=== PATIENT | female | born 1980 | race American Indian/Alaskan Native ===

== ENCOUNTER 2018-04-13 11:39 | Emergency (ER) | payer OTHER ==
[2018-04-13] MEDS ORDERED: ZOFRAN ODT ONE (12:41)
[2018-04-13] MEDS ORDERED: BENADRYL PO ONE (12:45)
[2018-04-13] MEDS ORDERED: ZOFRAN ODT PO ONE (12:45)
[2018-04-13 13:16] LABS: Basophils % (Auto) 0.8 % (0.0-1.8); Eosinophils % (Auto) 0.8 % (0.0-4.3); Hematocrit 37.6 % (30.3-42.9); Hemoglobin 12.4 gm/dl (10.1-14.3); Lymphocytes # (Auto) 1.2 K/mm3 (1.2-5.4); Lymphocytes % (Auto) 20.9 % (13.4-35.0); Mean Corpuscular HGB Conc 33 % (30-34); Mean Corpuscular Hemoglobin 28 pg (28-32); Mean Corpuscular Volume 85 fl (79-97); Monocytes # (Auto) 0.3 K/mm3 (0.0-0.8); Monocytes % (Auto) 5.2 % (0.0-7.3); Platelet Count 179 K/mm3 (140-440); Red Blood Count 4.45 M/mm3 (3.65-5.03); Red Cell Distribution Width 13.8 % (13.2-15.2)
[2018-04-13 13:18] LABS: Bacteria,Urine 1+ /HPF (Negative); Bilirubin,Urine NEG (Negative); Blood,Urine NEG (Negative); Color,Urine Yellow (Yellow); Mucus,Urine FEW /HPF; Protein,Urine <15 mg/dL mg/dL (Negative); Urobilinogen,Urine < 2.0 mg/dL (<2.0)
[2018-04-13 13:22] LABS: HCG Qualitative,Urine Negative (Negative)
[2018-04-13 13:48] LABS: Alanine Aminotransferase 9 units/L (7-56); Albumin 4.2 g/dL (3.9-5); BUN/Creatinine Ratio 12; Blood Urea Nitrogen 7 mg/dL (7-17); Calcium 9.1 mg/dL (8.4-10.2); Hemolysis Index 32; Lipase 28 units/L (13-60)
--- NOTE | 2018-04-13 14:34 | Emergency Department Report ---
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 Reports this morning at approximately 0945 she smelled a noxious smell in the office. Reports that customers in the bank around the same time began to complain of abdominal pain. Reports that she felt drowsy and that her face began to smell. Reports that the facial swelling improved upon arrival to the ER. Reports that she felt some burning in her abdomen and chest at the time of the smell. Denies symptoms prior to the smell. No fire witnessed or smoke inhaled. NKDA. [place] Complaint: allergic reaction, facial swelling -: Gradual, hour(s) Exposure: unknown Symptoms: facial swelling, lip swelling, abdominal pain Severity: mild Treatment Prior to Arrival: none Previous Allergy History: none - Related Data Home Medications Medication Instructions Recorded Confirmed Last Taken Vit 49/Iron Fum/Folic 1 each PO QDAY 06/30/14 08/10/14 08/09/14 08:30 [Mini Tablet] Acetaminophen [Acetaminophen TAB] 500 mg PO Q6HR 07/07/14 08/12/14 08/09/14 08: 30 1 tab Allergies Allergy/AdvReac Type Severity Reaction Status Date / Time No Known Allergies Allergy Verified 06/30/14 14:56 ED Review of Systems ROS: Stated complaint: INHALED GAS Other details as noted in HPI Other: GENERAL: No weight change, fatigue, weakness, fever, chills, or night sweats SKIN: No changes in skin or hair, no itching, no rashes, no jaundice HEAD: No trauma, headache, or visual changes EYES: No blurriness, tearing, itching, acute visual loss, conjunctival discoloration, or scleral icterus EARS: No hearing loss, tinnitus, vertigo, or earache NOSE: No rhinorrhea, stuffiness, sneezing, itching, or epistaxis MOUTH: No bleeding gums, hoarseness, sore throat, or swelling CARDIAC: chest burning RESPIRATORY: No shortness of breath, wheeze, cough, sputum production, hemoptysis, pneumonia, asthma, bronchitis, or emphysema GI: abdominal burning, nausea URINARY: No frequency, urgency, polyuria, dysuria, hematuria, or incontinence MUSCULOSKELETAL: No muscle weakness, joint stiffness, decrease in range of motion, redness, swelling NEUROLOGIC: No loss of sensation, numbness, tingling, tremors, weakness, paralysis, seizures HEMATOLOGIC: No anemia, easy bruising, bleeding, petechiae, or purpura ENDOCRINE: No hot or cold intolerance, sweating, polyuria, polydipsia or, polyphagia no thyroid problems PSYCHIATRIC: No change in mood, no anxiety, no depression ED Past Medical Hx - Past Medical History Previous Medical History?: Yes Hx Hypertension: No Hx Heart Attack/AMI: No Hx Congestive Heart Failure: No Hx Diabetes: No Hx Deep Vein Thrombosis: No Hx Liver Disease: No Hx Renal Disease: No Hx Sickle Cell Disease: No Hx Seizures: No Hx Asthma: No Hx COPD: No Hx HIV: No - Surgical History Past Surgical History?: No - Social History Smoking Status: Never Smoker Substance Use Type: Alcohol - Medications Home Medications: Home Medications Medication Instructions Recorded Confirmed Last Taken Type Vit 49/Iron Fum/Folic 1 each PO QDAY 06/30/14 08/10/14 08/09/14 08:30 History [Mini Tablet] Acetaminophen [Acetaminophen TAB] 500 mg PO Q6HR 07/07/14 08/12/14 08/09/14 08: 30 History 1 tab ED Physical Exam - General Limitations: No Limitations - Other Other exam information: GENERAL: Patient in no acute distress. Patient reports symptom improvement since arriving to the ER from when symptoms began. HEAD: Normocephalic, atraumatic EYES: PERRLA, EOM intact, no scleral icterus, visual de paz and acuity wnl NOSE: No tenderness, discharge, sinus tenderness MOUTH: No erythema, bleeding, exudate HEART: Regular rate and rhythm, no murmur, S1-S2 are auscultated, pulses are symmetric LUNGS: bilateral breath sounds. No wheezing, rales, rhonchi ABDOMEN: Normal bowel sounds, no tenderness, no rebound, no guarding, no masses , no CVA tenderness MUSCULOSKELETAL: Normal joint range of motion, no redness, no swelling, no tenderness NEUROLOGIC: GCS 15, Alert and Oriented x3, Cranial nerves intact, normal sensation, normal strength, normal gait, no cerebellar deficit PSYCHIATRIC: No homicidal or suicidal ideation, no anxiety, no depression, no hallucinations SKIN: Skin is warm and dry, no wounds, no rashes ED Course Vital Signs 04/13/18 04/13/18 11:46 12:39 Temperature 99.8 F H Pulse Rate 90 Respiratory 18 18 Rate Blood Pressure 169/99 O2 Sat by Pulse 100 100 Oximetry ED Medical Decision Making - Lab Data Result diagrams: 04/13/18 12:59 04/13/18 12:59 Laboratory Results - last 24 hr 04/13/18 04/13/18 04/13/18 12:45 12:59 12:59 WBC 5.5 RBC 4.45 Hgb 12.4 Hct 37.6 MCV 85 MCH 28 MCHC 33 RDW 13.8 Plt Count 179 Lymph % (Auto) 20.9 [place] % (Auto) 5.2 Eos % (Auto) 0.8 Baso % (Auto) 0.8 Lymph # 1.2 [place] # 0.3 Eos # 0.0 Baso # 0.0 Seg Neutrophils % 72.3 H Seg Neutrophils # 4.0 Sodium 135 L Potassium 4.0 Chloride 100.1 Carbon Dioxide 21 L Anion Gap 18 BUN 7 Creatinine 0.6 L Estimated GFR > 60 BUN/Creatinine Ratio 12 Glucose 80 Calcium 9.1 Total Bilirubin 0.30 AST 18 ALT 9 Alkaline Phosphatase 52 Total Protein 7.6 Albumin 4.2 Albumin/Globulin Ratio 1.2 Lipase 28 Urine Color Yellow Urine Turbidity Clear Urine pH 6.0 Ur Specific [place] 1.015 Urine Protein <15 mg/dl Urine Glucose (UA) Neg Urine Ketones Neg Urine Blood Neg Urine Nitrite Neg Urine Bilirubin Neg Urine Urobilinogen < 2.0 Ur Leukocyte Esterase Tr Urine WBC (Auto) 1.0 Urine RBC (Auto) 2.0 U Epithel Cells (Auto) < 1.0 Urine Bacteria (Auto) 1+ Urine Mucus Few Urine HCG, Qual Negative - Medical Decision Making Patient comfortable. Updated with results. Plan discharge with outpatient follow up. Patient agrees with plan and will return if symptoms worsen. Critical care attestation.: If time is entered above; I have spent that time in minutes in the direct care of this critically ill patient, excluding procedure time. ED Disposition Clinical Impression: Allergic reaction Qualifiers: Encounter type: initial encounter Qualified Code(s): T78.40XA - Allergy, unspecified, initial encounter Disposition: DC-01 TO HOME OR SELFCARE Is pt being admited?: No Condition: Stable Instructions: Allergies (ED) Forms: Work/School Release Form(ED) Time of Disposition: 14:40
[2018-04-13 15:08] VITALS: BP 135/80
== END 2018-04-13 15:03 | disposition home or self-care (01) ==
LOC: ED 11:39
DX: T21.02XA Burn of unspecified degree of abdominal wall, initial encounter (principal); T20.02XA Burn of unspecified degree of lip(s), initial encounter; X08.8XXA Exposure to other specified smoke, fire and flames, initial encounter; Y93.89 Activity, other specified; Y92.89 Other specified places as the place of occurrence of the external cause; Y99.8 Other external cause status
CPT/HCPCS: 36415; 80053; 81001; 81025; 83690; 85025; 99283; Q0162